=== PATIENT | female | born 1980 | race Hispanic/Latino ===

== ENCOUNTER 2016-05-29 20:10 | Emergency (ER) | payer OTHER ==
[~2016-05-29] VITALS: Ht 154.9 cm; Wt 76.4 kg
[2016-05-29 20:13] VITALS: BP 138/79; PULSE 100; RESP 20; O2SAT 100
[2016-05-29 21:52] LABS: BASOPHILS % (AUTO) 0.2 % (0-3); EOSINOPHILS % (AUTO) 1.7 % (0-5); MONOCYTES % (AUTO) 8.3 % (4-12); Mean Corpuscular Hemoglobin 30.4 pg (27.0-35.0); Mean Corpuscular Volume 91.4 fL (81-100); NEUTROPHILS % (AUTO) 62.6 % (40-74); Platelet Count 269 bil/L (150-400)
[2016-05-29 22:15] LABS: Magnesium 2.2 mg/dL (1.6-2.6)
--- NOTE | 2016-05-29 22:21 | ED.REPORT ---
HPI-Abd Pain F Under 40 Date of Service May 29, 2016 ED Provider: Eduard Singer MD Pt is a healthy 36 y/o female presenting to the ED c/o epigastric abdominal pain onset 5 days ago. She c/o associated nausea. She denies bloody stools, fever, dyspepsia, vomiting. Nursing Notes Stated Complaint: SHORTNESS OF BREATH/ABDOMINAL PAIN/NAUSEA Chief Complaint: Female Abdominal Pain Nursing Notes Reviewed: Yes Allergies: Coded Allergies: No Known Allergies (Unverified , 05/01/14) Scheduled Omeprazole (Omeprazole) 40 Mg Capsule.dr 40 MG PO DAILY Scheduled PRN Calcium Carbonate (Tums) 500 Mg Tab.chew 500 MG PO QID PRN PRN For Dyspepsia or Heartburn General Time Seen by MD: 21:38 Chief Complaint Abdominal pain Hx Obtained From: Patient Arrived By: Walk-in Sudden in Onset?: No Onset Occurred: 5 days ago Symptom Duration: Since onset Progression since Onset: Unchanged Location: : Epigastric Quality: Painful Radiation: : Does not radiate Severity: Current: Moderate Severity: Maximum: Moderate Similar Sx Previous: No Past Medical History Past Medical History healthy, occasional migraines Past Surgical History Reports: Hysterectomy Smoking History Never Smoker Social History Alcohol Use: "Social" Drug Use: Denies drug use 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 Physical Exam Initial Vital Signs Vital Signs (First) Date Time Temp Pulse Resp B/P Pulse Ox O2 Delivery O2 Flow Rate FiO2 05/29/16 20:13 36.4 100 20 138/79 100 05/30/16 00:21 Room Air Initial VS: Reviewed, Vital signs normal Head / Eyes: Atraumatic, Normocephalic, PERRL ENT: Mucous membranes moist, Conjunctiva normal, No scleral icterus Neck: Supple, Full range of motion Extremities: Vascular intact, Neuro intact, No swelling, No tenderness Skin: Warm, Dry, No cyanosis Neurologic: Alert, Oriented, Nonfocal Psychiatric: Mood/affect normal, Behavior normal, Normal thought content General/Constitutional: Awake, Alert, No acute distress, Cooperative, Not toxic appearing Appearance / Presentation: Positive: Uncomfortable Respiratory / Chest: Atraumatic, Breath sounds NL, Breath sounds = bilat, No respiratory distress, No rales, No rhonchi, No wheezing, No retractions, No stridor, No chest tenderness, No chest wall deformity, No crepitus Cardiovascular: Heart rate NL, Regular rhythm, Heart sounds NL, No gallop, No murmurs, No rubs, Cap refill not delayed, Peripheral circulation NL Abdomen: Atraumatic, Soft, No guarding, No rebound, No distention, No palpable mass Tenderness/Guarding/Rebound: Positive: Tender epigastric Back: Full range of motion, Painless range of motion, No CVA tenderness Interpretation & Diagnostics Lab Results Interpretation Result Diagram: 05/29/16213405/29/162134 Test 05/29/16 21:35 05/29/16 23:00 White Blood Count 10.4th/mm3 (3.8-10.1) Red Blood Count 4.18mil/mm3 (3.90-5.20) Hemoglobin 12.7g/dL (12.0-15.6) Hematocrit 38.2% (35.0-46.0) Mean Corpuscular Volume 91.4fL (81-100) Mean Corpuscular Hemoglobin 30.4pg (27.0-35.0) Mean Corpuscular Hemoglobin Concent 33.2% (32.0-37.0) Red Cell Distribution Width 13.0% (12.3-15.4) Platelet Count 269bil/L (150-400) Neutrophils (%) (Auto) 62.6% (40-74) Lymphocytes (%) (Auto) 27.1% (14-46) Monocytes (%) (Auto) 8.3% (4-12) Eosinophils (%) (Auto) 1.7% (0-5) Basophils (%) (Auto) 0.2% (0-3) Sodium Level 138mEq/L (134-144) Potassium Level 3.8mEq/L (3.5-5.2) Chloride Level 101mEq/L (97-108) Carbon Dioxide Level 24mmol/L (18-29) Blood Urea Nitrogen 10mg/dL (6-20) Creatinine 0.56mg/dL (0.57-1.00) Estimat Glomerular Filtration Rate 176mL/min (>59) Glucose Level 108mg/dL (60-99) Calcium Level 8.9mg/dL (8.5-10.1) Magnesium Level 2.2mg/dL (1.6-2.6) Total Bilirubin 0.2mg/dL (0.0-1.2) Aspartate Amino Transf (AST/SGOT) 30U/L (0-50) Alanine Aminotransferase (ALT/SGPT) 27U/L (0-32) Alkaline Phosphatase 69U/L (25-150) Total Protein 7.5g/dL (6.4-8.4) Albumin 4.4g/dL (3.4-5.0) Lipase 48U/L (13-60) Hold [place] Top Tube Received (Received) Hold Urine Received (Received) US FAST Exam Normal gallbladder Exam Performed by: ED physician Exam Interpreted by: ED physician Re-Eval/Medical Decision Med Decision/Clinical Course Med Decision/Clinical Course: 36-year-old female with epigastric pain times one week. Blood in her stools. Mild epigastric tenderness no rebound or guarding. Urine is negative for infection. Vital signs are stable. Labs are unremarkable. Pain improved with GI cocktail. Likely dyspepsia. Treated with Tums as needed. Start PPI. Return precautions given. Follow up with primary doctor in 2 days. Re-Evaluation/Progress #1: Time of Eval: 23:04 Re-Evaluation/Progress Note: Pt rechecked. GI cocktail provided no relief. Still has pain and tenderness of the epigastrium. Re-Evaluation/Progress #2: Time of Eval: 23:27 Re-Evaluation/Progress Note: Pt rechecked. FAST exam performed to assess gallbladder. Appears normal. Informed pt of plan for treatment. Pt understands and agrees with plan for treatment. F/U instructions and RTER warnings given. All questions addressed. Counseled Regarding: Diagnosis, Lab results, Need for follow-up, When/why to return to ED Discharge & Departure Primary Impression: Gastritis Disposition: Home Discharge Condition All VS Reviewed: Yes Condition: Stable Patient Instructions: Gastritis (ED) Additional Instructions: Your symptoms are consistent with gastritis, inflammation of the stomach. Your labs were normal today. Take Omeprazole as directed. Take Tums as needed. Return to the emergency department for severe or increasing pain, bloody or black stools, persistent vomiting, high fever, or for other concerning symptoms. Follow-up with your doctor on Tuesday or Tuesday. Referrals: Christiano Granda MD (PCP) Scribe Attestation Portions of this note were transcribed by Nathan Toro. I, Dr. Singer, personally performed the history, physical exam and medical decision-making; I reviewed and confirmed the accuracy of the information in the transcribed note. Signed by Tesha Benitez, 05/29/16 - [id number] copies to: Christiano Granda MD, Ben M MD May 29, 2016 22:21 NATHAN TORO May 29, 2016 22:27
[2016-05-29] MEDS ORDERED: LidocaineVisc 2%:Antacid 1:1 10 mL Syringe PO ONE (22:25)
[2016-05-29] MEDS ORDERED: OMEP40CA36 PO (23:32)
[2016-05-29] MEDS ORDERED: CALC500T9 PO (23:32)
[2016-05-30 00:21] VITALS: BP 116/76; PULSE 67; RESP 18; O2SAT 98
== END 2016-05-30 00:21 | disposition home or self-care (01) ==
LOC: SED 20:13
DX: K29.70 Gastritis, unspecified, without bleeding (principal)

== ENCOUNTER 2016-11-06 03:11 | Emergency (ER) | payer OTHER ==
[~2016-11-06] VITALS: Ht 154.9 cm; Wt 72.3 kg
[~2016-11-06 03:11] MED LIST: CALC500T9 PO; OMEP40CA36 PO
[2016-11-06 03:13] VITALS: BP 77/34; PULSE 82; RESP 16; O2SAT 98
--- NOTE | 2016-11-06 03:44 | ED.REPORT ---
HPI-Abd Pain F Under 40 Date of Service Nov 06, 2016 ED Provider: Luis Eddy MD The pt is a 36 y/o female w/ a hx of gastritis, and pancreatitis presenting to the ED complaining of abdominal pain onset an hour ago. The pain began right after she ate dinner and is localized to the lower part of her abdomen. Denies dysuria, frequency, nausea, vomiting The pt had three beers tonight. Nursing Notes Stated Complaint: ABDOMINAL PAIN Chief Complaint: Female Abdominal Pain Nursing Notes Reviewed: Yes Allergies: Coded Allergies: No Known Allergies (Unverified , 05/01/14) Scheduled Omeprazole (Omeprazole) 40 Mg Capsule.dr 40 MG PO DAILY Scheduled PRN Calcium Carbonate (Tums) 500 Mg Tab.chew 500 MG PO QID PRN PRN For Dyspepsia or Heartburn General Time Seen by MD: 03:42 Chief Complaint Abdominal pain Hx Obtained From: Patient Arrived By: Walk-in Sudden in Onset?: Yes Onset Occurred: 1 - 4 hours ago Symptom Duration: Since onset Recent Healthcare: No recent hospitalization, Recent doctor visit Past Medical History Past Medical History occasional migraines Gastritis Pancreatitis Past Surgical History Reports: Hysterectomy (partial ) Smoking History Never Smoker Social History Alcohol Use: "Social" Drug Use: Denies drug use Occupation [employer] Ambulatory Status Independent Review of Systems GI: Reports: Abdominal pain, Denies: Nausea, Vomiting Female: Denies: Dysuria, Urinary frequency Complete sys rev & neg: except as marked. Physical Exam Initial Vital Signs Vital Signs (First) Date Time Temp Pulse Resp B/P Pulse Ox O2 Delivery O2 Flow Rate FiO2 11/06/16 03:13 37.0 82 16 77/34 98 Room Air Initial VS: Reviewed, Vital signs abnormal Head / Eyes: Atraumatic, Normocephalic, PERRL ENT: Mucous membranes moist, Conjunctiva normal, No scleral icterus Neck: Supple, Non-tender, Full range of motion Extremities: Vascular intact, Neuro intact, No swelling, No tenderness Skin: Warm, Dry, No cyanosis Neurologic: Alert, Oriented, Nonfocal Psychiatric: Mood/affect normal, Behavior normal, Normal thought content General/Constitutional: Awake, Alert Pt smells of alcohol Respiratory / Chest: Atraumatic, Breath sounds NL, Breath sounds = bilat Cardiovascular: Heart rate NL, Regular rhythm, Heart sounds NL Abdomen: Soft Tenderness/Guarding/Rebound: Positive: Tender diffuse (worse in suprapubic area ) Back: Atraumatic, Inspection NL, Full range of motion, No CVA tenderness Interpretation & Diagnostics Lab Results Interpretation Result Diagram: 11/06/16 0420 11/06/16 0420 Test 11/06/16 04:20 11/06/16 05:50 White Blood Count 8.5th/mm3 (3.8-10.1) Red Blood Count 4.54mil/mm3 (3.90-5.20) Hemoglobin 14.2g/dL (12.0-15.6) Hematocrit 40.8% (35.0-46.0) Mean Corpuscular Volume 89.9fL (81-100) Mean Corpuscular Hemoglobin 31.3pg (27.0-35.0) Mean Corpuscular Hemoglobin Concent 34.8% (32.0-37.0) Red Cell Distribution Width 12.6% (12.3-15.4) Platelet Count 220bil/L (150-400) Neutrophils (%) (Auto) 66.6% (40-74) Lymphocytes (%) (Auto) 23.7% (14-46) Monocytes (%) (Auto) 7.7% (4-12) Eosinophils (%) (Auto) 1.7% (0-5) Basophils (%) (Auto) 0.1% (0-3) Sodium Level 140mEq/L (134-144) Potassium Level 3.5mEq/L (3.5-5.2) Chloride Level 101mEq/L (97-108) Carbon Dioxide Level 20mmol/L (18-29) Blood Urea Nitrogen 6mg/dL (6-20) Creatinine 0.48mg/dL (0.57-1.00) Estimat Glomerular Filtration Rate 211mL/min (>59) Glucose Level 99mg/dL (60-99) Calcium Level 9.4mg/dL (8.5-10.1) Magnesium Level 2.2mg/dL (1.6-2.6) Total Bilirubin 0.3mg/dL (0.0-1.2) Aspartate Amino Transf (AST/SGOT) 22U/L (0-50) Alanine Aminotransferase (ALT/SGPT) 24U/L (0-32) Alkaline Phosphatase 66U/L (25-150) Total Protein 8.3g/dL (6.4-8.4) Albumin 4.6g/dL (3.4-5.0) Lipase 45U/L (13-60) Hold Urine Received (Received) Lab values outside NL range: no clinical significance. Re-Eval/Medical Decision Med Decision/Clinical Course 36-year-old female with lower abdominal pain of uncertain etiology. Labs are normal. CT scan is pending. Care is being turned over to the day shift. Source of Hx: Old records Re-Evaluation/Progress : Time of Eval: 05:57 Re-Evaluation/Progress Note: Rechecked pt and discussed plan for CT. Counseled Regarding: Diagnosis, Lab results, Need for follow-up, When/why to return to ED Discharge & Departure Shift Change Sign-Out Patient Care Transferred: Yes Discussed Complaint(s): Yes Laboratory Evaluation: Back, reviewed by me Imaging Studies: Ordered, not yet done Primary Impression: Abdominal pain Disposition: Home Discharge Condition All VS Reviewed: Yes Condition: Stable Referrals: Christiano Granda MD (PCP) Care Transferred to: Dr. Yost Care Transferred at: 06:00 Scribe Attestation Portions of this note were transcribed by Neo Chamberlain. I, Dr. Eddy personally performed the history, physical exam and medical decision-making; I reviewed and confirmed the accuracy of the information in the transcribed note. copies to: Christiano Granda MD, Howard L MD Nov 06, 2016 03:44 Neo Chamberlain Nov 06, 2016 03:58
[2016-11-06] MEDS ORDERED: 0.9% Sodium Chloride 1,000 ML IV ONE (03:54)
[2016-11-06] MEDS ORDERED: Ondansetron 2 mg/mL 2 mL Inj IVPUSH PRN (03:55)
[2016-11-06] MEDS: HYDROmorphone 0.5 mg/0.5 mL iSecure Syringe IVPUSH PRN ×4 (04:23→06:06)
[2016-11-06 04:26] LABS: BASOPHILS % (AUTO) 0.1 % (0-3); EOSINOPHILS % (AUTO) 1.7 % (0-5); MONOCYTES % (AUTO) 7.7 % (4-12); Mean Corpuscular Hemoglobin 31.3 pg (27.0-35.0); Mean Corpuscular Volume 89.9 fL (81-100); NEUTROPHILS % (AUTO) 66.6 % (40-74); Platelet Count 220 bil/L (150-400)
[2016-11-06 04:53] LABS: Magnesium 2.2 mg/dL (1.6-2.6)
[2016-11-06 05:59] VITALS: BP 106/67; PULSE 93; RESP 18; O2SAT 100
[2016-11-06 06:04] LABS: APPEARANCE,URINE CLEAR (CLEAR,HAZY); COLOR,URINE YELLOW (YELLOW); OCCULT BLOOD,URINE NEGATIVE (NEGATIVE); PH,URINE 6.5 (5.0-8.0); UROBILINOGEN,URINE NORMAL (NORMAL)
[2016-11-06] MEDS ORDERED: HYDROmorphone 1 mg/mL Inj IVPUSH ONE ×2 (06:40→10:10)
[2016-11-06 07:18] VITALS: BP_SYST 107; BP_SYST 115; BP_DIAS 55; BP_DIAS 79; PULSE 91; PULSE 95; O2SAT 94; O2SAT 96
--- NOTE | 2016-11-06 08:15 | DRSVH ---
PROCEDURE: CT ABDOMEN AND PELVIS WITH CONTRAST ([id number]) INDICATIONS: lower abd pain TECHNIQUE: After the administration of intravenous contrast, 5 mm thick sections acquired from the diaphragm to the symphysis. 5 mm coronal and sagittal reformats were acquired. For radiation dose reduction, the following was used: automated exposure control, adjustment of mA and/or kV according to patient siz e. COMPARISON: None. FINDINGS: Image quality: Excellent. ABDOMEN: Lung bases: Lung bases are clear. Heart size is normal. Solid organs: Liver and spleen are normal in size and enhancement. Gallbladder appears normal. Jules iary system is non dilated. Pancreas enhances normally. No adrenal nodules. Kidneys demonstrate no rmal size and enhancement, without hydronephrosis. Peritoneum and bowel: Bowel loops demonstrate normal wall thickness and caliber. No free fluid or a ir. Nodes and vessels: No retroperitoneal or mesenteric adenopathy by size criteria. Aorta and inferior vena cava are normal in size. Miscellaneous: No ventral hernias. PELVIS: Genitourinary: Bladder wall thickness is normal. There is an ovoid cyst at the left ovary measuring 1.9 x 2.5 cm. Miscellaneous: No inguinal hernias or adenopathy. Bones: No suspicious bony lesions. No vertebral body compression fractures. IMPRESSION: A source of current symptoms is not found. Incidental note of a cyst at the left ovary a s discussed above, largest dimension 2.5 cm. Dictated by: Moustapha Orourke M.D. on 11/06/2016 at 8:10 Approved by: Moustapha Orourke M.D. on 11/06/2016 at 8:14
--- NOTE | 2016-11-06 09:34 | DRSVH ---
PROCEDURE: US PELVIC SONOGRAM + TRANSVAGINAL SONOGRAM INDICATIONS: abd pain, better eval for torsion, TOA, correl CT TECHNIQUE: Real-time scanning was performed of the pelvic organs, with image documentation. Additional endovagi nal scanning was necessary due to incomplete visualization of the adnexal and endometrial structures by transabdominal scanning. COMPARISON: [facility], CT, CT ABD PELVIS W CON, 11/06/2016, 6:15. FINDINGS: Uterus previously removed. Right ovary size: 3.13 cm, 2.42 cm, 2.04 cm, 2.62 cm, 3.00 cm Left ovary size: 2.60 cm, 1.91 cm, 2.84 cm, 3.40 cm, 2.87 cm, 3.58 cm Transabdominal scanning: Limited scanning through the kidneys shows no hydronephrosis. No pathologi c free abdominal or pelvic fluid. Endovaginal scanning: Ovaries: Within normal physiologic limits for presence of what appears be a small hemorrhagic left o varian cyst measuring 1.2 x 1.0 x 1.4 cm.. IMPRESSION: Prior hysterectomy, no sign of ovarian torsion or pelvic abscess. Small left hemorrhagic ovarian cyst incidentally noted and also seen on CT scanning same day. Note: These findings are concordant with the preliminary interpretation. Dictated by: Moustapha Orourke M.D. on 11/06/2016 at 9:29 Approved by: Moustapha Orourke M.D. on 11/06/2016 at 9:32
[2016-11-06 10:53] VITALS: BP 104/57; PULSE 66; RESP 16; O2SAT 97
[2016-11-06] MEDS ORDERED: Ondansetron 2 mg/mL 2 mL Inj IVPUSH ONE (11:40)
[2016-11-06] MEDS ORDERED: Senna-Docusate 8.6-50 mg Tablet PO ONE (11:45)
[2016-11-06 12:20] VITALS: BP 104/57; PULSE 66; RESP 16; O2SAT 97
== END 2016-11-06 12:20 | disposition home or self-care (01) ==
LOC: SED 03:11
DX: R10.30 Lower abdominal pain, unspecified (principal); N83.202 Unspecified ovarian cyst, left side; G43.909 Migraine, unspecified, not intractable, without status migrainosus; Z90.711 Acquired absence of uterus with remaining cervical stump
CPT/HCPCS: 36415; 74177; 76830; 76856; 80053; 81000; 81025; 83690; 83735; 85025; 87086; 87088; 96374; 96375; 96376; 99285; J1170; J2405; J7030; Q9967